=== PATIENT | male | born 2000 | race Caucasian/White ===

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

== ENCOUNTER → 2019-01-02 | Outpatient (CLI) | payer BC ==
[~2019-01-02] MED LIST changes: +FUROSEMIDE INJ 10 MG/ML 4 ML VIAL ONE
--- NOTE | 2019-01-02 18:34 | Diagnostic Imaging Report ---
Renal Scan with Lasix Washout Clinical information: Hydronephrosis; chronic renal calculi Technique: Following intravenous administration of 10.9 mCi of Tc-99m MAG3, dynamic images of the kidneys in the posterior projection were obtained through 40 minutes. Lasix 40 mg was administered intravenously at 10 minutes post injection of the tracer. Report: Left kidney: Perfusion of the left kidney is prompt. The kidney has a reniform shape with mild thinning of the renal cortex. Extraction of tracer from the blood pool is normal. Clearance of tracer from the renal parenchyma is prompt. Mild caliectasis is present throughout the kidney but the renal pelvis is not dilated. Increased pooling of tracer is seen within dilated calices. No net drainage of tracer from the pelvicalyceal system is seen prior to administration of Lasix. Washout of tracer from the pelvicalyceal system following administration of Lasix is rapid with a T-1/2 of 5 minutes (normal less than 15 minutes). No significant stasis of tracer is seen within the left ureter. Right kidney: Perfusion to the right kidney is prompt. The right kidney has a reniform shape although it is small in size and significantly smaller than the left kidney. Mild thinning of the renal parenchyma is present. Extraction of tracer by the renal parenchyma is normal. Clearance of tracer from the renal parenchyma is prompt. The calices are mildly dilated throughout the kidney but the renal pelvis does not appear dilated. Increased pooling of tracer is seen within the dilated renal calices. No net drainage of tracer from the pelvicalyceal system is seen prior to administration of Lasix. Washout of tracer from the pelvicalyceal system following administration of Lasix is rapid with a T-1/2 of 5 minutes (normal less than 15 minutes). No significant stasis of tracer is seen within the right ureter. Differential renal function: The left kidney contributes 73% of total renal function and the right kidney contributes 27% (normal 43-57%). Impression: 1. Mild thinning of the renal cortex related to scarring. The function of the remaining renal parenchyma is normal. Caliectasis is present throughout the kidney. The renal pelvis does not fill with tracer so cannot be adequately evaluated. It may not fill due to presence of renal calculi. No physiologically significant obstruction of the renal collecting system is present. 2. Overall decrease in size of kidney with mild thinning of the renal cortex related to scarring. The decreased differential function reflects the overall decrease in size of the right kidney compared to the left kidney. The function of the remaining renal parenchyma is normal. Caliectasis is present throughout the kidney. The renal pelvis does not fill with tracer so cannot be adequately evaluated. It may not fill due to presence of renal calculi. No physiologically significant obstruction of the renal collecting system is present. Signed by: Dr. Anisha Hudson M.D. on 01/02/2019 6:30 PM
== END ==
LOC: NM 14:20
PROVIDERS: ATTEND Urology
DX: N13.30 Unspecified hydronephrosis (principal)
CPT/HCPCS: 78708; A9562; J1940

== ENCOUNTER 2019-01-28 09:06 | Emergency (ER) | payer BC ==
[~2019-01-28] VITALS: Ht 172.7 cm; Wt 61.2 kg
[~2019-01-28 09:06] MED LIST changes: -FUROSEMIDE INJ 10 MG/ML 4 ML VIAL ONE
[2019-01-28 09:53] LABS: BASOPHILS % 0.1 % (0.0-1.0); HEMATOCRIT 40.1 % (38.2-49.6); HEMOGLOBIN 13.7 g/dL (14.0-18.0); LYMPHOCYTES # (AUTO) 1.3 (1.0-3.2); LYMPHOCYTES % 7.8 % (18.0-39.1); MEAN CORPUSCULAR HEMOGLOBIN 29.4 pg (28-32); MEAN CORPUSCULAR HGB CONC 34.2 g/dL (31-35); MEAN CORPUSCULAR VOLUME 86.1 fL (81-99); MONOCYTES # (AUTO) 1.8 (0.2-0.8); MONOCYTES % 10.9 % (4.4-11.3); NEUTROPHILS # (AUTO) 12.9 (2.1-6.9); NEUTROPHILS % 80.7 % (38.7-80.0); PLATELET COUNT 187 x10e3/uL (140-360); RED BLOOD COUNT 4.66 x10e6/uL (4.3-5.7); RED CELL DISTRIBUTION WIDTH 12.5 % (11.7-14.4)
[2019-01-28 10:08] LABS: ALANINE AMINOTRANSFERASE 25 IU/L (0-55); ALBUMIN 4.4 g/dL (3.5-5.0); ALBUMIN/GLOBULIN RATIO 1.5 (0.8-2.0); ALKALINE PHOSPHATASE 72 IU/L (40-150); ANION GAP 14.2 mmol/L (8-16); BLOOD UREA NITROGEN 11 mg/dL (7-26); BUN/CREATININE RATIO 13 (6-25); CALCIUM 9.9 mg/dL (8.4-10.2); CARBON DIOXIDE 24 mmol/L (22-29); CHLORIDE 105 mmol/L (98-107); CREATININE, SERUM 0.84 mg/dL (0.72-1.25); EST GLOMERULAR FILTRATION RATE > 60 ML/MIN (60-); GLUCOSE 107 mg/dL (74-118); POTASSIUM 3.2 mmol/L (3.5-5.1); SODIUM 140 mmol/L (136-145)
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
[2019-01-28 11:43] VITALS: BP 119/75
[2019-01-28] MEDS ORDERED: IOPAMIDOL 370 MG/ML 200 ML INFUS..BTL INJ ONE (18:27)
[2019-01-28] MEDS ORDERED: SODIUM CHLORIDE 0.9% 50ML 50 ML ONE (18:27)
== END 2019-01-28 11:55 | disposition home or self-care (01) ==
LOC: ER 09:06
DX: S02.641A Fracture of ramus of right mandible, initial encounter for closed fracture (principal); S02.651A Fracture of angle of right mandible, initial encounter for closed fracture; S29.8XXA Other specified injuries of thorax, initial encounter; S39.91XA Unspecified injury of abdomen, initial encounter; Y04.0XXA Assault by unarmed brawl or fight, initial encounter; Y92.488 Other paved roadways as the place of occurrence of the external cause
CPT/HCPCS: 36415; 70450; 70486; 71260; 72125; 74177; 80053; 85025; 99284; Q9967

== ENCOUNTER → 2019-06-16 | Day surgery (SDC) | payer BC ==
[2019-06-15 12:02] LABS: BASOPHILS % 0.7 % (0.0-1.0); EOSINOPHILS # (AUTO) 0.2 (0.0-0.4); EOSINOPHILS % 3.7 % (0.0-6.0); HEMATOCRIT 44.5 % (38.2-49.6); HEMOGLOBIN 15.1 g/dL (14.0-18.0); LYMPHOCYTES # (AUTO) 2.1 (1.0-3.2); LYMPHOCYTES % 34.3 % (18.0-39.1); MEAN CORPUSCULAR HEMOGLOBIN 29.3 pg (28-32); MEAN CORPUSCULAR HGB CONC 33.9 g/dL (31-35); MEAN CORPUSCULAR VOLUME 86.2 fL (81-99); MONOCYTES # (AUTO) 0.5 (0.2-0.8); MONOCYTES % 8.7 % (4.4-11.3); NEUTROPHILS # (AUTO) 3.2 (2.1-6.9); NEUTROPHILS % 52.4 % (38.7-80.0); PLATELET COUNT 217 x10e3/uL (140-360); RED BLOOD COUNT 5.16 x10e6/uL (4.3-5.7); RED CELL DISTRIBUTION WIDTH 11.8 % (11.7-14.4)
[2019-06-15 12:18] LABS: BLOOD UREA NITROGEN 10 mg/dL (7-26); BUN/CREATININE RATIO 12 (6-25); CALCIUM 9.6 mg/dL (8.4-10.2); CARBON DIOXIDE 30 mmol/L (22-29); CHLORIDE 104 mmol/L (98-107); CREATININE, SERUM 0.82 mg/dL (0.72-1.25); EST GLOMERULAR FILTRATION RATE > 60 ML/MIN (60-); GLUCOSE 87 mg/dL (74-118); SODIUM 141 mmol/L (136-145)
--- NOTE | 2019-06-15 12:22 | Diagnostic Imaging Report ---
Abdomen, 1 view. History: Preop, kidney stones. Comparison: 03/21/2019 Findings: Air is scattered throughout nondilated small and large bowel. Multiple calcifications are again seen in both kidneys. The osseous structures are intact. IMPRESSION: Medullary nephrocalcinosis without significant change. Signed by: Ty Hancock on 06/15/2019 12:20 PM
[~2019-06-16] MED LIST changes: +CEFTRIAXONE SOD 1 GM/NS 50 ML 50 ML IV ONE; +DEXAMETHASONE SOD PHOS INJ 4 MG/ML VIAL ONE; +FENTANYL CITRATE/PF 100MCG/2 ML INJ ONE; +HYDROMORPHONE 1MG/1ML INJ ONE; +LIDOCAINE HCL 2% LOCAL INJ 5 ML SDV VIAL INJ ONE; +MIDAZOLAM HCL 2 MG/2 ML VIAL ONE; +ONDANSETRON HCL INJ 2MG/ML 2ML 2 MG/ML VIAL ONE; +OXYCODONE HCL20 M1 PO; +PROPOFOL IV EMULSION 10 MG/ML 20 ML VIAL ONE; +SEVOFLURANE INHAL SOLN 250 ML PEN BTL ONE
--- NOTE | 2019-06-16 07:15 | NUR ---
SPIRITUAL CARE - Pre-Surgery Assessment: Pt in bed. Pt's fiancee at bedside. Pt reported supportive attention from family and friends. Intervention: I provided pastoral presence, hospitality, and sympathetic listening. I acquainted pt with availability of loan coordinator while hospitalized. Outcome: Pt expressed appreciation for visit. No need for follow up indicated at this time. GABRIELLA Barrioslain Spiritual Care Department O: [phone] Pager: [phone] ([phone] calling from)
[2019-06-16 10:40] VITALS: BP 129/89
--- NOTE | 2019-08-01 22:53 | Operative Report ---
DATE OF PROCEDURE: 06/16/2019 SURGEON: South Johnson MD PREOPERATIVE DIAGNOSIS: Right nephrolithiasis. POSTOPERATIVE DIAGNOSIS: Right nephrolithiasis. OPERATIONS PERFORMED: 1. Right-sided extracorporeal shockwave lithotripsy (separate staged procedure performed as part of multi-staged and multi-step process in managing the patient's urolithiasis). 2. Supervision of fluoroscopy, no radiologist present. ANESTHESIA: General. COMPLICATIONS: None. CLINICAL SUMMARY: Drew Georges is a 19-year-old man with severe bilateral stone disease. The patient is brought to the operating room for staged procedure. He is aware of the risks of bleeding, infection, injury to adjacent structures, need for additional procedures and elected to proceed. OPERATIVE PROCEDURE IN DETAIL: Informed consent was verified. Drew Georges was properly identified taken to the operating room, placed on the lithotripsy table in supine position. Anesthesia was uneventfully begun. The patient's right nephrolithiasis was localized with biplanar fluoroscopy. A total of 3000 shocks were delivered to 8 mm cluster in the renal pelvis and a 20 mm cluster in the lower calyx, excellent fragmentation was noted. The patient was then uneventfully reversed from anesthesia and taken to recovery room in stable condition. There were no complications of the procedure. He tolerated the procedure well. Explicit postop instructions were given. We will follow the patient up by returning him back to the operating room for left versus right ESWL. South Johnson MD [place]/MODL /[id number] cc: South Johnson MD
== END | disposition home or self-care (01) ==
LOC: OR 06:15
PROVIDERS: ATTEND Urology
DX: N20.0 Calculus of kidney (principal); F17.210 Nicotine dependence, cigarettes, uncomplicated; Z01.812 Encounter for preprocedural laboratory examination; Z01.818 Encounter for other preprocedural examination
CPT/HCPCS: 36415; 50590; 74018; 80048; 83970; 84550; 85025; J0696; J1100; J1170; J2001; J2250; J2405; J2704; J3010

== ENCOUNTER → 2019-08-25 | Day surgery (SDC) | payer BC ==
[2019-08-23 09:45] LABS: BASOPHILS % 0.5 % (0.0-1.0); EOSINOPHILS # (AUTO) 0.2 (0.0-0.4); EOSINOPHILS % 4.1 % (0.0-6.0); HEMATOCRIT 46.9 % (38.2-49.6); HEMOGLOBIN 15.5 g/dL (14.0-18.0); LYMPHOCYTES # (AUTO) 1.7 (1.0-3.2); LYMPHOCYTES % 29.6 % (18.0-39.1); MEAN CORPUSCULAR HEMOGLOBIN 29.1 pg (28-32); MEAN CORPUSCULAR VOLUME 88.2 fL (81-99); MONOCYTES # (AUTO) 0.5 (0.2-0.8); MONOCYTES % 8.7 % (4.4-11.3); NEUTROPHILS # (AUTO) 3.3 (2.1-6.9); NEUTROPHILS % 56.9 % (38.7-80.0); PLATELET COUNT 188 x10e3/uL (140-360); RED BLOOD COUNT 5.32 x10e6/uL (4.3-5.7)
[2019-08-23 10:00] LABS: ANION GAP 11.1 mmol/L (8-16); BLOOD UREA NITROGEN 14 mg/dL (7-26); BUN/CREATININE RATIO 17 (6-25); CALCIUM 9.8 mg/dL (8.4-10.2); CARBON DIOXIDE 29 mmol/L (22-29); CHLORIDE 103 mmol/L (98-107); CREATININE, SERUM 0.81 mg/dL (0.72-1.25); EST GLOMERULAR FILTRATION RATE > 60 ML/MIN (60-); GLUCOSE 100 mg/dL (74-118); POTASSIUM 4.1 mmol/L (3.5-5.1); SODIUM 139 mmol/L (136-145)
--- NOTE | 2019-08-23 10:02 | Diagnostic Imaging Report ---
Exam: KUB - 1 view Indication: Preoperative Comparison: CT chest abdomen and pelvis of 01/28/2019, KUB of 06/15/2019 Findings: Again seen are bilateral renal medullary calcific densities consistent with medullary nephrocalcinosis. Nonobstructive bowel gas pattern. No free air. The osseous structures appear unremarkable. Impression: Unchanged medullary nephrocalcinosis. Signed by: Romero Rosales MD on 08/23/2019 9:58 AM
[~2019-08-25] MED LIST changes: +PERCOCET 10-321 EACH PO
[2019-08-25 10:00] VITALS: BP 119/74
--- NOTE | 2019-08-27 16:36 | Operative Report ---
DATE OF PROCEDURE: 08/25/2019 SURGEON: South Johnson MD PREOPERATIVE DIAGNOSIS: Bilateral nephrolithiasis. POSTOPERATIVE DIAGNOSIS: Bilateral nephrolithiasis. OPERATIONS PERFORMED: 1. Staged extracorporeal shockwave lithotripsy. 2. Supervision of fluoroscopy, no radiologist present. ANESTHESIA: General. COMPLICATIONS: None. CLINICAL SUMMARY: Drew Georges is a 19-year-old man with nephrocalcinosis, bilateral nephrolithiasis. He was brought for staged procedure. He is aware of the risks of bleeding, infection, injury to adjacent structures, need for additional procedures, and elected to proceed. We are performing the procedure during COVID-19 emergency due to the fact that he has nephrolithiasis and awaiting several months to perform this procedure to allow additional stone growth and potentially put the kidney that the patient's kidneys at more risk. OPERATIVE PROCEDURE IN DETAIL: Informed consent was verified. Drew Georges was properly identified, taken to the operating room, and placed on the lithotripsy table in supine position. Anesthesia was uneventfully begun. The patient's left nephrolithiasis was localized with biplanar fluoroscopy. A total of 3000 shocks were delivered. We treated two stone clusters in the upper pole calyx and the stone cluster in mid pole calyx we did not have obstruct to treat the lower pole calyx on the left side. The patient was then uneventfully reversed from anesthesia and taken to recovery room in stable condition. No complications to the procedure. He tolerated the procedure well. Plans will be to return the patient to the operating room in several weeks to perform a left versus right ESWL. South Johnson MD [facility]/MODL /[id number] [place]
== END | disposition home or self-care (01) ==
LOC: OR 06:54
PROVIDERS: ATTEND Urology
DX: N20.0 Calculus of kidney (principal); F17.210 Nicotine dependence, cigarettes, uncomplicated; Z01.818 Encounter for other preprocedural examination
CPT/HCPCS: 36415; 50590; 74018; 80048; 84550; 85025; J0696; J1100; J1170; J2001; J2250; J2405; J2704; J3010

== ENCOUNTER → 2019-09-22 | Day surgery (SDC) | payer BC ==
[~2019-09-22] MED LIST changes: +MORPHINE SULFATE INJ 10 MG/ML ONE
[2019-09-22 10:15] VITALS: BP 110/81
--- NOTE | 2019-09-22 13:19 | Diagnostic Imaging Report ---
TECHNIQUE: Frontal views of the abdomen. INDICATION: 19-year-old man with stones. COMPARISON: Abdomen radiograph 08/23/2019. IMPRESSION: No significant change in burden of the bilateral medullary nephrocalcinosis/nephrolithiasis. Nonobstructive bowel gas pattern. Bones and soft tissues are unremarkable. Signed by: Kyleigh Leon MD on 09/22/2019 1:15 PM
--- NOTE | 2019-09-23 21:03 | Operative Report ---
DATE OF PROCEDURE: 09/22/2019 SURGEON: South Johnson MD PREOPERATIVE DIAGNOSIS: Bilateral nephrolithiasis. POSTOPERATIVE DIAGNOSIS: Bilateral nephrolithiasis. OPERATIONS PERFORMED: 1. Staged less right-sided extracorporeal shockwave lithotripsy. 2. Supervision of fluoroscopy, no radiologist present. ANESTHESIA: General. COMPLICATIONS: None. CLINICAL SUMMARY: Drew camara an is a 19-year-old man with bilateral nephrolithiasis. He has severe nephrocalcinosis. He has undergone lithotripsy in the recent past and brought us multiple stone fragments. We will send those for chemical analysis. The patient is brought for another staged procedure. He is aware of the risks of bleeding, infection, injury to adjacent structures, need for further procedures and elected to proceed. He also understands very well that his nephrocalcinosis poses a significant risk to progress toward renal failure sometime in the future. We are performing these procedures in order to eliminate as many stones as possible in hopes of preventing acute obstruction and preventing renal deterioration. This procedure was performed during the COVID-19 emergency situation due to the fact that it will not be taxing resources in any way and that it prevents stone growth, which poses a risk into this young man's kidney function and longevity. OPERATIVE PROCEDURE IN DETAIL: Informed consent was verified Drew Georges was properly identified taken to the operating room, placed on the lithotripsy table in supine position. Anesthesia was uneventfully begun. The patient's right nephrolithiasis was localized with biplanar fluoroscopy. A total of 3000 shocks were delivered with excellent fragmentation. The patient was then uneventfully reversed from anesthesia and taken to recovery room in stable condition. There were no complications to the procedure. He tolerated the procedure well. Plans will be to return the patient to the operating room in several weeks to perform additional lithotripsy. The laterality of that procedure will depend on radiology obtained at that time. South Johnson MD [facility]/MODL /[id number] cc: Teresa Koenig MD
== END | disposition home or self-care (01) ==
LOC: OR 06:12
PROVIDERS: ATTEND Urology
DX: N20.0 Calculus of kidney (principal); N29 Other disorders of kidney and ureter in diseases classified elsewhere; F17.200 Nicotine dependence, unspecified, uncomplicated
CPT/HCPCS: 50590; 74018; 88300; J0696; J1100; J1170; J2001; J2250; J2270; J2405; J2704; J3010

== ENCOUNTER → 2019-10-31 | Outpatient (CLI) | payer BC, OTHER ==
[~2019-10-31] MED LIST changes: -CEFTRIAXONE SOD 1 GM/NS 50 ML 50 ML IV ONE; -DEXAMETHASONE SOD PHOS INJ 4 MG/ML VIAL ONE; -FENTANYL CITRATE/PF 100MCG/2 ML INJ ONE; -HYDROMORPHONE 1MG/1ML INJ ONE; -LIDOCAINE HCL 2% LOCAL INJ 5 ML SDV VIAL INJ ONE; -MIDAZOLAM HCL 2 MG/2 ML VIAL ONE; -MORPHINE SULFATE INJ 10 MG/ML ONE; -ONDANSETRON HCL INJ 2MG/ML 2ML 2 MG/ML VIAL ONE; -PROPOFOL IV EMULSION 10 MG/ML 20 ML VIAL ONE; -SEVOFLURANE INHAL SOLN 250 ML PEN BTL ONE
--- NOTE | 2019-10-31 14:05 | Diagnostic Imaging Report ---
TECHNIQUE: Frontal views of the abdomen. INDICATION: 19-year-old man with stones. COMPARISON: Abdomen radiograph 09/22/2019. IMPRESSION: No significant change in burden of the bilateral medullary nephrocalcinosis/nephrolithiasis. Nonobstructive bowel gas pattern. Bones and soft tissues are unremarkable. Signed by: Bette Graham MD on 10/31/2019 2:02 PM
== END ==
LOC: DX 09:54 → EDSTATUS 11-03 08:00
PROVIDERS: ATTEND Urology
DX: N20.0 Calculus of kidney (principal); G89.29 Other chronic pain; Z01.812 Encounter for preprocedural laboratory examination; Z01.818 Encounter for other preprocedural examination; Z11.59 Encounter for screening for other viral diseases; Z53.9 Procedure and treatment not carried out, unspecified reason
CPT/HCPCS: 74018; U0002

== ENCOUNTER → 2022-07-06 | Outpatient (CLI) | payer OTHER | LOC: CT 14:45 | PROVIDERS: ATTEND Urology | DX: N20.0 Calculus of kidney (principal) | CPT/HCPCS: 74176 ==

== ENCOUNTER → 2022-09-18 | Outpatient (CLI) | payer OTHER ==
[~2022-09-18] MED LIST changes: +FUROSEMIDE INJ 10 MG/ML 4 ML VIAL ONE
== END ==
LOC: NM 10:45
PROVIDERS: ATTEND Urology
DX: N20.0 Calculus of kidney (principal)
CPT/HCPCS: 74176; 78708; A9562; J1940